=== PATIENT | female | born 1970 | race Caucasian/White ===

== ENCOUNTER 2017-01-09 13:01 | Emergency (ER) | payer OTHER ==
[~2017-01-09] VITALS: Ht 162.6 cm; Wt 64.8 kg
[2017-01-09 13:02] VITALS: TEMP 36.6; Ht 162.6 cm; Wt 64.8 kg
[2017-01-09] MEDS ORDERED: CYCL5TAB PO (13:35)
[2017-01-09] MEDS ORDERED: TRAZ50TA35 PO (13:35)
[2017-01-09] MEDS ORDERED: LEVO25TA PO (13:35)
[2017-01-09] MEDS ORDERED: ONDANSETRON INJ 2 MG/ML 2 ML VIAL IV STA (13:49)
[2017-01-09] MEDS ORDERED: SODIUM CHLORIDE 0.9% 1000ML 1,000 ML IV STA (13:49)
[2017-01-09] MEDS ORDERED: KETOROLAC TROMETHAMINE 30 MG/ML VIAL IV STA (13:49)
[2017-01-09 14:07] LABS: BASO ABS # 0.06 K/uL (0-0.2); COMPLETE YES; EOS % 3.7 %; HEMATOCRIT 40.3 % (37-47); IG% 0.3 %; LYMPH % 29.6 %; MEAN CELL VOLUME 89.6 fL (80-100); MEAN CORPUSCULAR HEMOGLOBIN 31.1 pg (25-34); MEAN CORPUSCULAR HGB CONC 34.7 g/dl (32-36); MEAN PLATELET VOLUME 9.8 fL (7.4-10.4); MONO % 9.7 %; NEUT % 55.7 %; PLATELET COUNT 250 K/uL (130-400); WHITE BLOOD COUNT 5.75 K/uL (4.8-10.8)
[2017-01-09 14:37] LABS: ALKALINE PHOSPHATASE 62 U/L (45-117); ALT/SGPT 48 U/L (12-78); AST/SGOT 30 U/L (15-37); BLOOD UREA NITROGEN 8 mg/dl (7-18); BUN/CREATININE RATIO 12.1 (10-20); CALCIUM 9.8 mg/dl (8.5-10.1); CARBON DIOXIDE 28 mmol/L (21-32); CHLORIDE 104 mmol/L (98-107); CREATININE 0.62 mg/dl (0.60-1.20); GLUCOSE 82 mg/dl (70-99); POTASSIUM 3.8 mmol/L (3.5-5.1); SODIUM 142 mmol/L (136-145)
[2017-01-09 15:07] LABS: PREG INTERNAL NEGATIVE QC NEG CLEAR BACKGROUND; PREG INTERNAL POSITIVE QC POS CONTROL LINE
[2017-01-09 15:09] LABS: MANUAL MICROSCOPIC REQUIRED? NO; REVIEW REQ? NO; URINE APPEARANCE CLEAR (CLEAR); URINE BILIRUBIN NEG (NEG); URINE COLOR YELLOW; URINE NITRITE NEG (NEG); URINE PH 7.5 (4.5-7.5); URINE SPECIFIC GRAVITY 1.007 (1.000-1.030); UROBILINOGEN NEG (NEG); ZZUR CULT IF INDIC CLEAN CATCH NO
--- NOTE | 2017-01-09 15:27 | DIAGNOSTIC IMAGING REPORT ---
CT OF THE ABDOMEN AND PELVIS WITHOUT CONTRAST, STONE PROTOCOL CLINICAL HISTORY: Left flank pain. Lower abdominal pain. COMPARISON STUDY: None. TECHNIQUE: Helical axial images of the abdomen and pelvis were obtained without IV or oral contrast according to renal stone protocol. FINDINGS: No renal, ureteral or bladder calculi are present. There is no hydronephrosis or hydroureter. Pelvic calcifications likely reflect phleboliths. Evaluation of the remainder of the abdomen and pelvis is suboptimal on this unenhanced exam. There are innumerable hypodense hepatic lesions. The larger lesions measure water attenuation. These likely reflect cysts. Unenhanced images of the spleen, adrenal glands and pancreas are normal with the exception of a possible 1.5 cm cystic pancreatic lesion shown within the pancreatic body. This is shown on axial image 126 of 423. There is no evidence for a bowel obstruction. The appendix is normal. Skeletal structures are unremarkable. A 1.5 cm water attenuation lesion within the lower pole the right kidney is suboptimal assessed on this unenhanced exam but likely reflects a cyst. IMPRESSION: 1. No urinary calculi or hydronephrosis. Pelvic calcifications likely reflect phleboliths although the course of the ureters is difficult to follow on this exam. 2. Normal appendix. 3. 1.5 cm cystic lesion within the pancreatic body. This is low suspicion but a follow-up nonemergent pancreatic protocol MRI is recommended. This may reflect a side branch IPMN. 4. Multiple suspected hepatic cysts and a right renal cyst. Electronically signed by: Albin Rider M.D. 01/09/2017 3:26 PM Dictated Date/Time: 01/09/2017 3:16 PM
--- NOTE | 2017-01-09 17:18 | DIAGNOSTIC IMAGING REPORT ---
EXAMINATION: PELVIC ULTRASOUND (transabdominal and endovaginal scanning) CLINICAL HISTORY: Left pelvic pain COMPARISON STUDY: CT scan dated 01/09/2017. FINDINGS: The uterus measured 6.2 x 2.7 x 4.3 cm. There is a nabothian gland cyst. There is a 21 mm left-sided uterine fibroid.. The endometrial stripe measured 2 mm. The right ovary measured 27 x 9 x 18 mm. The left ovary measured 32 x 9 x 7 mm. There is no ultrasonographic evidence of ovarian torsion. It should be noted that ovarian torsion can be present with normal Doppler ultrasonographic findings. There was no evidence of pathologic free pelvic fluid. IMPRESSION: 1. Normal ovaries 2. 21 mm left-sided uterine fibroid Electronically signed by: Sadiq Henley M.D. 01/09/2017 5:17 PM Dictated Date/Time: 01/09/2017 5:15 PM
--- NOTE | 2017-01-09 17:48 | EMERGENCY ROOM VISIT NOTE ---
History Report prepared by Maria Del Rosario: Shamika Gonzalez Under the Supervision of: Dr. Rosalino Gill D.O. First contact with patient: 13:41 Chief Complaint: ABDOMINAL PAIN Stated Complaint: ABD AND BACK PAIN Nursing Triage Summary: Triage note: pt reports "my back went out yesterday and and i have had increased lower left abd pain since this morning.." pt reports nausea. pt reports she has had intermittent left abd pain for the past 9 months but increased today. History of Present Illness The patient is a 46 year old female who presents to the Emergency Room with complaints of intermittent stabbing LLQ pain starting this morning. The patient currently rates her discomfort as a 5/10 in severity. She has had a slight pain in that area once a month for the last 8 months. This morning the pain became constant and then increased to episodes of stabbing pain. She reports some nausea. She denies any vomiting, hematuria, abnormal vaginal discharge or bleeding. She has a history of SVT and a torn tendon in her shoulder which will be operated on next week. She states that she cannot take ibuprofen in preparation for the surgery. She stopped taking control 3 months ago. She has a small cyst in her left ovary which was diagnosed 15 years ago. She mentions that she injured her back yesterday morning and went to the chiropractor. Source of History: patient Onset: this morning Position: abdomen (LLQ) Symptom Intensity: 5/10 Quality: stabbing Timing: intermittent Associated Symptoms: + nausea, No urinary symptoms, No vomiting Note: Pt denies abnormal vaginal discharge or bleeding. Review of Systems See HPI for pertinent positives & negatives. A total of 10 systems reviewed and were otherwise negative. Past Medical & Surgical Medical Problems: (1) SVT (supraventricular tachycardia) Family History Cancer Lung disease Social History Smoking Status: Current Every Day Smoker Alcohol Use: occasionally Marital Status: single Housing Status: lives alone Occupation Status: employed Current/Historical Medications Scheduled Cyclobenzaprine Hcl (Flexeril), 1 TAB PO HS Levothyroxine Sodium (Synthroid), 1 TAB PO DAILY Miscellaneous Medications Trazodone Hcl (Trazodone), 50 MG PO Allergies Coded Allergies: Penicillins (Unverified Allergy, Unknown, swelling/redness, 01/09/17) Physical Exam Vital Signs Date Time Temp Pulse Resp B/P Pulse Ox O2 Delivery O2 Flow Rate FiO2 3/31/17 17:32 65 16 102/64 98 01/09/17 15:22 58 16 114/59 94 01/09/17 13:02 36.6 79 18 126/87 100 Room Air Physical Exam CONSTITUTIONAL/VITAL SIGNS: Reviewed / noted above. GENERAL: Non-toxic in appearance. INTEGUMENTARY: Warm, dry, and [place]. HEAD: Normocephalic. EYES: without scleral icterus or trauma. ENT/OROPHARYNX: clear and moist. LYMPHADENOPATHY/NECK: Is supple without lymphadenopathy or meningismus. RESPIRATORY: Lungs clear and equal. CARDIOVASCULAR: Regular rate and rhythm. GI/ABDOMEN: Soft with LLQ tenderness. No organomegaly or pulsatile mass. No rebound or guarding. Normal bowel sounds. EXTREMITIES: Warm and well perfused. BACK: Left CVA tenderness. NEUROLOGICAL: Intact without focal deficits. PSYCHIATRIC: normal affect. MUSCULOSKELETAL: Normally developed with good muscle tone. Medical Decision & Procedures ER Provider Diagnostic Interpretation: Radiology results as stated below per my review and radiologist interpretation: CT OF THE ABDOMEN AND PELVIS WITHOUT CONTRAST, STONE PROTOCOL CLINICAL HISTORY: Left flank pain. Lower abdominal pain. COMPARISON STUDY: None. TECHNIQUE: Helical axial images of the abdomen and pelvis were obtained without IV or oral contrast according to renal stone protocol. FINDINGS: No renal, ureteral or bladder calculi are present. There is no hydronephrosis or hydroureter. Pelvic calcifications likely reflect phleboliths. Evaluation of the remainder of the abdomen and pelvis is suboptimal on this unenhanced exam. There are innumerable hypodense hepatic lesions. The larger lesions measure water attenuation. These likely reflect cysts. Unenhanced images of the spleen, adrenal glands and pancreas are normal with the exception of a possible 1.5 cm cystic pancreatic lesion shown within the pancreatic body. This is shown on axial image 126 of 423. There is no evidence for a bowel obstruction. The appendix is normal. Skeletal structures are unremarkable. A 1.5 cm water attenuation lesion within the lower pole the right kidney is suboptimal assessed on this unenhanced exam but likely reflects a cyst. IMPRESSION: 1. No urinary calculi or hydronephrosis. Pelvic calcifications likely reflect phleboliths although the course of the ureters is difficult to follow on this exam. 2. Normal appendix. 3. 1.5 cm cystic lesion within the pancreatic body. This is low suspicion but a follow-up nonemergent pancreatic protocol MRI is recommended. This may reflect a side branch IPMN. 4. Multiple suspected hepatic cysts and a right renal cyst. Electronically signed by: Albin Rider M.D. 01/09/2017 3:26 PM Dictated Date/Time: 01/09/2017 3:16 PM EXAMINATION: PELVIC ULTRASOUND (transabdominal and endovaginal scanning) CLINICAL HISTORY: Left pelvic pain COMPARISON STUDY: CT scan dated 01/09/2017. FINDINGS: The uterus measured 6.2 x 2.7 x 4.3 cm. There is a nabothian gland cyst. There is a 21 mm left-sided uterine fibroid.. The endometrial stripe measured 2 mm. The right ovary measured 27 x 9 x 18 mm. The left ovary measured 32 x 9 x 7 mm. There is no ultrasonographic evidence of ovarian torsion. It should be noted that ovarian torsion can be present with normal Doppler ultrasonographic findings. There was no evidence of pathologic free pelvic fluid. IMPRESSION: 1. Normal ovaries 2. 21 mm left-sided uterine fibroid Electronically signed by: Sadiq Henley M.D. 01/09/2017 5:17 PM Dictated Date/Time: 01/09/2017 5:15 PM Laboratory Results 01/09/17 13:55 Red Blood Count 4.50, Mean Corpuscular Volume 89.6, Mean Corpuscular Hemoglobin 31.1, Mean Corpuscular Hemoglobin Concent 34.7, Mean Platelet Volume 9.8, Neutrophils (%) (Auto) 55.7, Lymphocytes (%) (Auto) 29.6, Monocytes (%) (Auto) 9.7, Eosinophils (%) (Auto) 3.7, Basophils (%) (Auto) 1.0, Neutrophils # (Auto) 3.20, Lymphocytes # (Auto) 1.70, Monocytes # (Auto) 0.56, Eosinophils # (Auto) 0.21, Basophils # (Auto) 0.06 01/09/17 13:55 Test 01/09/17 13:55 01/09/17 14:45 White Blood Count 5.75 K/uL (4.8-10.8) Red Blood Count 4.50 M/uL (4.2-5.4) Hemoglobin 14.0 g/dL (12.0-16.0) Hematocrit 40.3 % (37-47) Mean Corpuscular Volume 89.6 fL (80-100) Mean Corpuscular Hemoglobin 31.1 pg (25-34) Mean Corpuscular Hemoglobin Concent 34.7 g/dl (32-36) Platelet Count 250 K/uL (130-400) Mean Platelet Volume 9.8 fL (7.4-10.4) Neutrophils (%) (Auto) 55.7 % Lymphocytes (%) (Auto) 29.6 % Monocytes (%) (Auto) 9.7 % Eosinophils (%) (Auto) 3.7 % Basophils (%) (Auto) 1.0 % Neutrophils # (Auto) 3.20 K/uL (1.4-6.5) Lymphocytes # (Auto) 1.70 K/uL (1.2-3.4) Monocytes # (Auto) 0.56 K/uL (0.11-0.59) Eosinophils # (Auto) 0.21 K/uL (0-0.5) Basophils # (Auto) 0.06 K/uL (0-0.2) RDW Standard Deviation 41.2 fL (36.4-46.3) RDW Coefficient of Variation 12.6 % (11.5-14.5) Immature Granulocyte % (Auto) 0.3 % Immature Granulocyte # (Auto) 0.02 K/uL (0.00-0.02) Anion Gap 10.0 mmol/L (3-11) Est Creatinine Clear Calc Drug Dose 98.0 ml/min Estimated GFR () 125.3 Estimated GFR (Non- 108.1 BUN/Creatinine Ratio 12.1 (10-20) Calcium Level 9.8 mg/dl (8.5-10.1) Total Bilirubin 0.5 mg/dl (0.2-1) Direct Bilirubin mg/dl (0-0.2) Aspartate Amino Transf (AST/SGOT) 30 U/L (15-37) Alanine Aminotransferase (ALT/SGPT) 48 U/L (12-78) Alkaline Phosphatase 62 U/L (45-117) Total Protein 8.2 gm/dl (6.4-8.2) Albumin 4.2 gm/dl (3.4-5.0) Lipase 152 U/L (73-393) Chemistry Specimen Hemolysis Urine Color YELLOW Urine Appearance CLEAR (CLEAR) Urine pH 7.5 (4.5-7.5) Urine Specific [place] 1.007 (1.000-1.030) Urine Protein NEG (NEG) Urine Glucose (UA) NEG (NEG) Urine Ketones NEG (NEG) Urine Occult Blood NEG (NEG) Urine Nitrite NEG (NEG) Urine Bilirubin NEG (NEG) Urine Urobilinogen NEG (NEG) Urine Leukocyte Esterase SMALL (NEG) Urine WBC (Auto) 1-5 /hpf (0-5) Urine RBC (Auto) 0-4 /hpf (0-4) Urine Hyaline Casts (Auto) 0 /lpf (0-5) Urine Epithelial Cells (Auto) 10-20 /lpf (0-5) Urine Bacteria (Auto) NEG (NEG) Urine Test NEG (NEG) Laboratory results as stated above per my review. Medications Administered Medications (Trade) Dose Ordered Sig/Barbara Route Start Time Stop Time Status Last Admin Dose Admin Sodium Chloride (Nss 1000ml) 1,000 ml @ 999 mls/hr Q1H1M STAT IV 01/09/17 13:49 01/09/17 14:49 DC 01/09/17 13:49 999 MLS/HR Ondansetron HCl (Zofran Inj) 4 mg NOW STAT IV 01/09/17 13:49 01/09/17 13:54 DC 01/09/17 14:19 4 MG Ketorolac Tromethamine (Toradol Inj) 30 mg NOW STAT IV 01/09/17 13:49 01/09/17 13:54 DC 01/09/17 14:19 30 MG ED Course 1342: Previous medical records were reviewed. The patient was evaluated in room B6. A complete history and physical examination was performed. 1349: Toradol Inj 30 mg IV, Zofran Inj 4 mg IV, NSS 1000 ml @ 999 mls/hr IV. 1740: On reevaluation, the patient is resting comfortably. I discussed the results and findings with the patient. She verbalized agreement of the treatment plan. She was discharged home. Medical Decision Differential considered: pancreatitis, hepatitis, or acute cholecystitis, AAA, UTI, pyelonephritis, kidney stones, appendicitis, diverticulitis, shingles, bowel obstruction mesenteric ischemia, intussusception,hernia, ovarian torsion, ruptured ovarian cyst,ectopic , . This is a 46-year-old female who presents to the ED with a chief complaint of left sided abdominal pain. The patient states that her pain is intermittent in the left lower quadrant. She started yesterday in her left low back. The left lower quadrant pain started this morning. She states that the pain comes and goes and is sharp and stabbing. The patient denies any abnormal vaginal discharge or bleeding. Her last menstrual period was in October. She states she is not . She does report some periodic pain once a month for the past 8 months in a similar location. CBC is normal. Complete O panel was normal. Lipase was negative. test is negative. Urine did not show infection. CT scan of the abdomen and pelvis reveals a 1.5 cm cystic lesion in the pancreatic body. This is of low suspicion but follow-up nonemergent pancreatic protocol MRI was recommended. I did talk to the patient about this. There were some hepatic cysts. The patient also had an ultrasound which revealed a 2.1 cm left uterine fibroid. The patient's pain has improved since Toradol. She was told the results. She is felt to be stable for discharge and outpatient follow-up. Impression Primary Impression: LLQ abdominal pain Scribe Attestation The scribe's documentation has been prepared under my direction and personally reviewed by me in its entirety. I confirm that the note above accurately reflects all work, treatment, procedures, and medical decision making performed by me. Departure Information Dispostion Home / Self-Care Referrals Mira Rubio CRNP (PCP) Patient Instructions My [facility] Additional Instructions Radiologist states you have a 1.5 cm cystic lesion on your pancreatic body. This is low suspicion but a nonemergent pancreatic protocol MRI is recommended. Talk to your doctor about ordering this. You've also have a 21 mm left uterine fibroid. You may also follow-up with your data warehouse analyst. Follow-up with your doctor for further care and evaluation in 1-2 days. Return to the emergency department for worsening or new symptoms or any concerns. You have been examined and treated today on an emergency basis only. This is not a substitute for, or an effort to provide, complete comprehensive medical care. It is impossible to recognize and treat all injuries or illnesses in a single emergency department visit. It is therefore important that you follow up closely with your doctor. Call as soon as possible for an appointment.
[2017-01-09 18:40] VITALS: BP 124/78; PULSE 70; O2SAT 99
== END 2017-01-09 18:41 | disposition home or self-care (01) ==
LOC: C.EDB 13:03
DX: R10.32 Left lower quadrant pain (principal); M54.5 Low back pain; F17.200 Nicotine dependence, unspecified, uncomplicated; Z79.899 Other long term (current) drug therapy; Z88.0 Allergy status to penicillin; Z80.9 Family history of malignant neoplasm, unspecified